=== PATIENT | female | born 1980 | race Caucasian/White ===

== ENCOUNTER 2021-08-14 21:58 | Emergency (ER) | payer SELFPAY ==
[2021-08-14] MEDS ORDERED: ONDANSETRON 4 MG/2 ML VIAL IVP STA (22:24)
[2021-08-14] MEDS ORDERED: MORPHINE 2 MG/ML CARPUJECT IVP STA (22:25)
[2021-08-14] MEDS ORDERED: SODIUM CHLORIDE 0.9% 1,000 ML IV STA (22:25)
[2021-08-14 22:30] LABS: BILIRUBIN,URINE NEGATIVE (NEGATIVE); GLUCOSE, URINE (UA) 500 mg/dL (NEGATIVE); KETONES,URINE (UA) NEGATIVE (NEGATIVE); LEUKOCYTE ESTERASE, URINE NEGATIVE (NEGATIVE); NITRITE,URINE NEGATIVE (NEGATIVE); OCCULT BLOOD,URINE NEGATIVE (NEGATIVE); PROTEIN,URINE NEGATIVE (NEGATIVE); UROBILINOGEN,URINE 0.2 (NORMAL) E.U./dL (NORMAL)
[2021-08-14 22:31] LABS: CLARITY,URINE CLEAR (CLEAR)
[2021-08-14 22:40] LABS: HCG UR QUAL NEGATIVE
[2021-08-14 23:33] LABS: BASOPHILS % (AUTO) 0.5 %; EOSINOPHILS # (AUTO) 0.1 10^3/uL (0.0-0.7); HCT - HEMATOCRIT 30.7 % (37.0-47.0); HGB - HEMOGLOBIN 9.4 g/dL (12.0-16.0); LYMPHOCYTES # (AUTO) 1.1 10^3/uL (1.5-3.5); LYMPHOCYTES % (AUTO) 25.5 %; MEAN CORPUSCULAR HEMOGLOBIN 25.8 pg (27.0-31.0); MEAN CORPUSCULAR HGB CONC 30.6 g/dL (32.0-36.0); MEAN CORPUSCULAR VOLUME 84.3 fL (81.0-99.0); MEAN PLATELET VOLUME 9.7 fL (7.9-10.8); MONOCYTES # (AUTO) 0.5 10^3/uL (0.0-1.0); MONOCYTES % (AUTO) 12.3 %; NEUTROPHILS # (AUTO) 2.6 10^3/uL (1.5-6.6); NEUTROPHILS % (AUTO) 58.5 %; PLT - PLATELET COUNT 354 10^3/uL (130-450); RED BLOOD COUNT 3.64 10^6/uL (4.20-5.40); RED CELL DISTRIBUTION WIDTH 16.8 % (12.0-15.0); WHITE BLOOD COUNT 4.4 x10^3/uL (4.8-10.8)
[2021-08-14 23:47] LABS: ALBUMIN 3.5 g/dL (3.2-5.5); ALBUMIN/GLOBULIN RATIO 1.2 (1.0-2.2); BILIRUBIN,TOTAL 0.5 mg/dL (0.2-1.0); CALCIUM 8.4 mg/dL (8.5-10.3); CREATININE 0.6 mg/dL (0.4-1.0); POTASSIUM 3.8 mmol/L (3.5-5.0); TOTAL PROTEIN 6.4 g/dL (6.7-8.2)
[2021-08-15] MEDS ORDERED: HYDROmorphone 1 MG/ML CARPUJECT IVP STA ×2 (00:07→00:50)
[2021-08-15] MEDS ORDERED: IOVERSOL 320 100 ML VIAL IVP ONE ×2 (00:20→00:50)
[2021-08-15] MEDS ORDERED: diphenhydrAMINE INJ 50 MG/ML VIAL IVP STA (00:40)
--- NOTE | 2021-08-15 00:41 | ED Physician Documentation ---
History of Present Illness - Stated complaint Stated Complaint: RT LOW Q ABD PX - Chief complaint Chief Complaint: Abd Pain - History obtained from History obtained from: Patient - Additonal information Additional information: 40-year-old woman with history of PCOS, PSH laparoscopy at 18yoa with possible appendectomy at that time p/w RLQ pain sudden onset yesterday, a/w nbnb n/v today. denies urinary symptoms, fever, diarrhea, back pain. pain is aching constant, 9/10, worse with pressing on it. Review of Systems Ten Systems: 10 systems reviewed and negative Constitutional: denies: Fever, Chills Cardiac: denies: Chest pain / pressure Respiratory: denies: Dyspnea GI: reports: Abdominal Pain, Nausea, Vomiting. denies: Diarrhea : denies: Dysuria PD PAST MEDICAL HISTORY - Past Medical History Past Medical History: Yes [employer]: Ovarian cysts, Other Other Past Medical History: PCOS - Past Surgical History Past Surgical History: Yes /[employer]: Other - Present Medications Home Medications: Ambulatory Orders Medication Instructions Recorded Confirmed Metformin HCl [Metformin ER 500 mg PO BID 08/14/21 08/14/21 Osmotic] Ondansetron Odt [Zofran] 4 mg TL Q6H PRN #10 tablet 08/15/21 - Allergies Allergies/Adverse Reactions: Allergies Allergy/AdvReac Type Severity Reaction Status Date / Time Iodinated Contrast Media Allergy Itching Verified 08/15/21 00:58 metoclopramide [From Reglan] Allergy Anxiety Verified 08/14/21 22:15 NSAIDS (Non-Steroidal Allergy Edema Verified 08/14/21 22:16 Anti-Inflamma - Social History Does the pt smoke?: No Smoking Status: Never smoker Does the pt drink ETOH?: Yes Does the pt have substance abuse?: No - Immunizations Immunizations are current?: Yes - POLST Patient has POLST: No PD ED PE NORMAL - Vitals Vital signs reviewed: Yes - General General: Alert and oriented X 3, No acute distress, Well developed/nourished - HEENT HEENT: Atraumatic, PERRL, EOMI - Neck Neck: Supple, no meningeal sign - Cardiac Cardiac: RRR - Respiratory Respiratory: No respiratory distress, Clear bilaterally - Abdomen Abdomen: Non tender, Non distended, Other (discomfort to RLQ palpation) - Back Back: No CVA TTP - Derm Derm: Normal color - Extremities Extremities: No deformity - Neuro Neuro: Alert and oriented X 3 - Psych Psych: Normal mood, Normal affect Results - Vitals Vitals: Vital Signs - 24 hr 08/14/21 08/14/21 08/15/21 22:12 22:22 00:12 Temperature 36.3 C L 36.5 C Heart Rate 110 H 110 H 111 H Respiratory 18 18 18 Rate Blood Pressure 183/109 H 183/109 H 176/100 H O2 Saturation 97 97 97 08/15/21 08/15/21 08/15/21 00:43 00:53 01:22 Temperature 36.8 C 36.9 C Heart Rate 106 H 101 H 100 Respiratory 18 18 16 Rate Blood Pressure 173/103 H 174/97 H 168/90 H O2 Saturation 96 94 97 08/15/21 01:48 Temperature 37.0 C Heart Rate 96 Respiratory 16 Rate Blood Pressure 170/90 H O2 Saturation 97 Oxygen O2 Source Room air - Labs Labs: Laboratory Tests 08/14/21 08/14/21 08/14/21 22:22 22:22 23:02 WBC 4.4 L RBC 3.64 L Hgb 9.4 L Hct 30.7 L MCV 84.3 MCH 25.8 L MCHC 30.6 L RDW 16.8 H Plt Count 354 MPV 9.7 Neut # (Auto) 2.6 Lymph # (Auto) 1.1 L Noble # (Auto) 0.5 Eos # (Auto) 0.1 Baso # (Auto) 0.0 Absolute Nucleated RBC 0.00 Nucleated RBC % 0.0 Sodium Potassium Chloride Carbon Dioxide Anion Gap BUN Creatinine Estimated GFR (MDRD) Glucose Calcium Total Bilirubin AST ALT Alkaline Phosphatase Total Protein Albumin Globulin Albumin/Globulin Ratio Lipase Urine Color YELLOW Urine Clarity CLEAR Urine pH 6.0 Ur Specific [place] 1.010 Urine Protein NEGATIVE Urine Glucose (UA) 500 H Urine Ketones NEGATIVE Urine Occult Blood NEGATIVE Urine Nitrite NEGATIVE Urine Bilirubin NEGATIVE Urine Urobilinogen 0.2 (NORMAL) Ur Leukocyte Esterase NEGATIVE Ur Microscopic Review NOT INDICATED Urine Culture Comments NOT INDICATED Urine HCG, Qual NEGATIVE 08/14/21 23:25 WBC RBC Hgb Hct MCV MCH MCHC RDW Plt Count MPV Neut # (Auto) Lymph # (Auto) Noble # (Auto) Eos # (Auto) Baso # (Auto) Absolute Nucleated RBC Nucleated RBC % Sodium 143 Potassium 3.8 Chloride 111 Carbon Dioxide 22 Anion Gap 10.0 BUN 8 Creatinine 0.6 Estimated GFR (MDRD) 112 Glucose 150 H Calcium 8.4 L Total Bilirubin 0.5 AST 30 ALT 36 Alkaline Phosphatase 69 Total Protein 6.4 L Albumin 3.5 Globulin 2.9 Albumin/Globulin Ratio 1.2 Lipase 31 Urine Color Urine Clarity Urine pH Ur Specific [place] Urine Protein Urine Glucose (UA) Urine Ketones Urine Occult Blood Urine Nitrite Urine Bilirubin Urine Urobilinogen Ur Leukocyte Esterase Ur Microscopic Review Urine Culture Comments Urine HCG, Qual PD MEDICAL DECISION MAKING - ED course ED course: patient with pruritus s/p CT. possible reaction to IV contrast therefore will give benadryl and continue to monitor. Patient continuing to improve with symptomatic management. CT and u/s noncontributory. return precautions discussed and medications provided. plan to f/u with pmd. Departure - Departure Disposition: 01 Home, Self Care Clinical Impression: Abdominal pain Condition: Good Instructions: ED Abdominal Pain Unkn Cause Prescriptions: Ondansetron Odt [Zofran] 4 mg TL Q6H PRN #10 tablet PRN Reason: Nausea / Vomiting Comments: You were seen in the emergency department for abdominal pain and nausea. Your labs, ct, and ultrasound Did not show an emergent cause but you should return to the emergency department immediately if you have any new or worsening symptoms or other concerns. Please follow up with your primary doctor.
--- NOTE | 2021-08-15 00:50 | Ultrasound Report ---
PROCEDURE: Pelvic w/Transvag+Doppler Comp INDICATIONS: RLQ pain, hx ovarian cysts TECHNIQUE: Real-time scanning was performed of the pelvic organs, with image documentation. Additional endovagi nal scanning was necessary due to incomplete visualization of the adnexal and endometrial structures by transabdominal scanning. COMPARISON: None. FINDINGS: No pathologic free abdominal or pelvic fluid. Uterus: Uterus is anteverted and normal in size at 5.9 x 3.1 x 2.1 cm. No fibroids seen. The endome trium measures 0.3 cm in combined thickness. Trace cervical fluid. Ovaries: Within normal limits. Blood flow seen in both ovaries. No significant cyst. Right ovary measures 2.2 x 1.8 x 1.3 cm. Volume of 3 cc. Left ovary measures 1.8 x 1.2 x 1.1 cm. Volume of 1 cc. IMPRESSION: 1. No ovarian cysts. 2. Endometrium is normal in thickness and measures 0.3 cm. Reviewed by: Austin Espinoza MD on 08/15/2021 12:48 AM PDT Approved by: Austin Espinoza MD on 08/15/2021 12:48 AM PDT Station ID: [id number]
--- NOTE | 2021-08-15 00:57 | CT Report ---
PROCEDURE: Abdomen/Pelvis W INDICATIONS: RLQ pain CONTRAST: IV CONTRAST: Optiray 320 ml: 100 PO CONTRAST: *NO PO CONTRAST TECHNIQUE: After the administration of intravenous contrast, 5 mm thick sections acquired from the diaphragms to the symphysis. 5 mm thick coronal and sagittal reformats were acquired. For radiation dose reducti on, the following was used: automated exposure control, adjustment of mA and/or kV according to tenisha ent size. COMPARISON: None. FINDINGS: Image quality: Excellent. ABDOMEN: Lung bases: Lung bases are clear. Heart size is normal. Solid organs: Liver and spleen are normal in size and enhancement. Gallbladder is not distended. No calcified gallstones. Biliary system is non dilated. Pancreas enhances normally. No adrenal nodul es. Kidneys demonstrate normal size and enhancement, without hydronephrosis. Peritoneum and bowel: Bowel loops demonstrate normal wall thickness and caliber. Small duodenal div erticulum. The appendix is absent, (3/74). No free fluid or air. Nodes and vessels: No retroperitoneal or mesenteric adenopathy by size criteria. Aorta and inferior vena cava are normal in size. Miscellaneous: No ventral hernias. PELVIS: Genitourinary: Bladder wall thickness is normal. Anteverted uterus. Miscellaneous: No inguinal hernias or adenopathy. Bones: No suspicious bony lesions. No vertebral body compression fractures. IMPRESSION: No abnormality identified to explain the patient's right lower quadrant pain. No free fluid. Appendix is absent. Reviewed by: Austin Espinoza MD on 08/15/2021 12:56 AM PDT Approved by: Austin Espinoza MD on 08/15/2021 12:56 AM PDT Station ID: [id number]
[2021-08-15] MEDS ORDERED: ONDANSETRON ODT 4 MG Prepack 2 TL PRN (01:33)
[2021-08-15] MEDS ORDERED: oxyCODONE/ACET 5/325 Prepack 4 PO STA (01:34)
[2021-08-15 01:49] VITALS: BP 170/90
== END 2021-08-15 01:50 | disposition home or self-care (01) ==
LOC: ED 21:58
DX: R10.31 Right lower quadrant pain (principal); R11.2 Nausea with vomiting, unspecified; L29.9 Pruritus, unspecified
CPT/HCPCS: 36415; 74177; 76830; 76856; 80053; 81003; 81025; 83690; 85025; 93975; 96361; 96374; 96375; 96376; 99284; 99285; J1170; J1200; Q9967; 81001; 87086